=== PATIENT | female | born 1970 | race Caucasian/White ===

== ENCOUNTER 2019-05-14 08:41 | Day surgery (SDC) | payer MEDICAID ==
[2019-05-12 12:22] LABS: CLARITY,URINE SLIGHTLY CLOUDY (Clear); COLOR,URINE YELLOW (Yellow); GLUCOSE, URINE NEGATIVE (Neg); KETONES,URINE NEGATIVE (Neg); LEUKOCYTE ESTERASE ,URINE NEGATIVE (Neg); NITRITES, URINE NEGATIVE (Neg); OCCULT BLOOD,URINE NEGATIVE (Neg); PH,URINE 8.5 (4.8-8.0); PROTEIN,URINE NEGATIVE (Neg); UROBILINOGEN,URINE 0.2 E.U/dL (0.2-1.0)
[2019-05-12 12:23] LABS: UA COLLECTION TYPE CLN CATCH MIDSTREAM
[2019-05-12 12:23] LABS: BASOPHILS % (AUTO) 0.5 % (0-1); EOSINOPHILS # (AUTO) 0.1 X10'3 (0-0.9); EOSINOPHILS % (AUTO) 1.4 % (0-6); LYMPHOCYTES # (AUTO) 1.2 X10'3 (1.1-4.8); LYMPHOCYTES % (AUTO) 17.9 % (21-51); MEAN CORPUSCULAR HGB CONC 34.6 g/dL (33.0-36.5); MEAN CORPUSCULAR VOLUME 92.5 FL (78-98); MEAN PLATELET VOLUME 8.5 FL (7.4-10.4); MONOCYTES # (AUTO) 0.5 X10'3 (0-0.9); MONOCYTES % (AUTO) 6.6 % (2-12); NEUTROPHILS # (AUTO) 5.1 X10'3 (1.8-7.7); NEUTROPHILS % (AUTO) 73.6 % (42-75); PRE OP HEMATOCRIT 42.3 % (35.0-45.0); PRE OP HEMOGLOBIN 14.6 g/dL (12.0-16.0); PRE OP PLATELET COUNT 293 X10'3 (140-440); RED BLOOD COUNT 4.57 X10'6 (4.20-5.60); RED CELL DISTRIBUTION WIDTH 12.1 % (11.5-14.5)
[2019-05-12 12:37] LABS: ALBUMIN 4.2 G/DL (3.4-5.0); ALBUMIN/GLOBULIN RATIO 1.3 (1.1-1.5); ALKALINE PHOSPHATASE 59 IU/L (46-116); BLOOD UREA NITROGEN 18 MG/DL (7-18); BUN/CREATININE RATIO 23.1 (6.6-38.0); CALCIUM 8.7 MG/DL (8.5-10.1); CHLORIDE 105 MMOL/L (99-107); CREATININE 0.78 MG/DL (0.40-0.90); PRE OP ALT 27 U/L (30-65); PRE OP ANION GAP 7 (8-16); PRE OP AST 21 U/L (10-37); PRE OP BILIRUB, TOTAL 0.3 MG/DL (0.0-1.0); PRE OP GLUCOSE 88 MG/DL (70-104); PRE OP POTASSIUM 4.2 MMOL/L (3.4-5.1); PRE OP SODIUM 142 MMOL/L (135-145); TOTAL CARBON DIOXIDE 29.7 MMOL/L (24-32); TOTAL PROTEIN 7.5 G/DL (6.4-8.2); eGFR 79 ML/MIN
[2019-05-12 12:42] LABS: HCG SERUM QL NEGATIVE
[2019-05-12 13:07] LABS: AMORPHOUS PHOSPHATES 4+
[2019-05-12 13:08] LABS: BACTERIA,URINE 1+ /HPF (Neg); RBC,URINE 0-2 /HPF (0-2); SQUAMOUS EPITHELIAL CELL,UR FEW /LPF (FEW)
[2019-05-12 13:09] LABS: WBC,URINE 0-4 /HPF (0-4)
[~2019-05-14] VITALS: Ht 160 cm; Wt 56.0 kg
[2019-05-14] VITALS (7 sets, daily range): BP systolic 125–147; BP diastolic 78–105
[~2019-05-14 08:41] MED LIST: BUSP5TAB3 PO; IBUP-1986 PO; [UNRECOGNIZED DRUG - CODE] PO; [UNRECOGNIZED DRUG - OTHER] TOP; ceFOXitin 2 GM ADDvantage bag 100 ML IV ONE; famotidine 10mg tablet PO ONE; ringers solution, lacted 1,000 ML IV SCH
[2019-05-14] MEDS ORDERED: ringers solution, lacted 1,000 ML IV SCH (13:51)
[2019-05-14] MEDS ORDERED: meperidine/PF 25mg/ml syringe IV PRN ×3 (13:55)
[2019-05-14] MEDS ORDERED: proCHLORperazine 10 MG/2 ml inj IV PRN (13:55)
[2019-05-14] MEDS ORDERED: morphine 4 MG/ML inj SYRINge IV PRN ×2 (13:55)
[2019-05-14] MEDS ORDERED: ondansetron/PF 4mg/2ml inj IV PRN (13:55)
[2019-05-14] MEDS ORDERED: BUPIVAcaine/PF 2.5 mg/ml (0.25%) 30ml vial ONE (14:16)
[2019-05-14] MEDS ORDERED: fentaNYL/PF 50MCG/1 ML 2ML syringe ONE (14:20)
[2019-05-14] MEDS ORDERED: midazolam 2 mg/2 ml injection ONE (14:21)
[2019-05-14] MEDS ORDERED: neostigmine methylsulfate 1 MG/ML 10ml vial ONE (14:27)
[2019-05-14] MEDS ORDERED: dexamethasone sod phosphate 10mg/ml inj ONE (14:27)
[2019-05-14] MEDS ORDERED: sevoflurane 250ml liquid IH ONE (14:27)
[2019-05-14] MEDS ORDERED: ondansetron/PF 4mg/2ml inj ONE (14:46)
[2019-05-14] MEDS ORDERED: rocuronium 10mg/ml inj IV ONE (15:18)
[2019-05-14] MEDS ORDERED: glycopyrrolate 0.2mg/ml inj ONE (15:19)
[2019-05-14] MEDS ORDERED: ketorolac trometh. 30mg/ml inj. ONE (15:19)
[2019-05-14] MEDS ORDERED: propofol inj 20 ML IV ONE (15:19)
[2019-05-14] MEDS ORDERED: LIDOcaine 2% (20mg/ml) 5ml vial ONE (15:19)
--- NOTE | 2019-05-14 15:32 | NUR ---
Received from OR via , accompanied by Anesthesiologist DR KELLY and report given by Anesthesiolgist. AWAKENS TO VOICE. VITALS STABLE. DRESSING DI. SUZY PAIN. ABD SOFT.
--- NOTE | 2019-05-14 16:22 | NUR ---
AWAKE AND ORIENTED. VITALS STABLE. DRESSING DI. SUZY PAIN. HOME WITH A FRIEND AT THIS TIME.
== END 2019-05-14 16:32 | disposition home or self-care (01) ==
LOC: PAS 08:41
PROVIDERS: ATTEND Obstetrics & Gynecology Obstetrics
DX: Z30.2 Encounter for sterilization (principal); G35 Multiple sclerosis; F41.9 Anxiety disorder, unspecified; Z88.5 Allergy status to narcotic agent; Z88.8 Allergy status to other drugs, medicaments and biological substances; Z79.899 Other long term (current) drug therapy; Z82.49 Family history of ischemic heart disease and other diseases of the circulatory system
CPT/HCPCS: 36415; 58671; 71046; 80053; 81001; 82948; 84703; 85025; 86885; 86900; 86901; 93005; A4264; J0694; J1100; J1885; J2001; J2250; J2405; J2704; J2710; J3010; J3490; A4618; A7000; J7120

== ENCOUNTER 2022-11-13 18:09 | Emergency (ER) | payer MEDICAID ==
[~2022-11-13] VITALS: Ht 160 cm; Wt 59.0 kg
[~2022-11-13 18:09] MED LIST changes: -ceFOXitin 2 GM ADDvantage bag 100 ML IV ONE; -famotidine 10mg tablet PO ONE; -ringers solution, lacted 1,000 ML IV SCH
[2022-11-13 18:14] VITALS: BP 127/66
== END 2022-11-13 19:41 | disposition home or self-care (01) ==
LOC: ER 18:09
DX: Z20.5 Contact with and (suspected) exposure to viral hepatitis (principal); Z88.5 Allergy status to narcotic agent; Z79.1 Long term (current) use of non-steroidal anti-inflammatories (NSAID); Z79.899 Other long term (current) drug therapy
CPT/HCPCS: 99281